=== PATIENT | female | born 1980 | race American Indian/Alaskan Native ===

== ENCOUNTER 2017-04-07 09:16 | Emergency (ER) | payer OTHER ==
[2017-04-07] MEDS ORDERED: DUONEB *Not for PRN Use IH ONE (11:11)
--- NOTE | 2017-04-07 12:24 | Emergency Department Report ---
ED Chest Pain HPI - General Chief Complaint: Dyspnea/Respdistress Stated Complaint: SOB Time Seen by Provider: 04/07/17 11:00 Source: patient Mode of arrival: Ambulatory Limitations: No Limitations - History of Present Illness Initial Comments: This is a 36-year-old female nontoxic, well nourished in appearance, no acute signs of distress presents to the ED with c/o of chest pain, shortness of breathe, and rash in between her breast. Patient describes chest pain as an "elephant on chest". Patient stated chest pain feels like its closing up. Patient denies any radiation of chest pain. Patient denies any back pain. Patient has history of asthma but this is not similar symptoms. Patient denies any fever, chills, nausea, vomiting, headache, stiff neck, numbness or tingling. States she was diagnosed with heart failure one year ago but has not been compliant with medication and hasn't been taking medication for the past month. Patient denies any drug allergies. PMH includes heart failure and asthma. MD Complaint: chest pain -: days(s) (1) Onset: during rest, during exertion Pain Location: substernal Pain Radiation: none Severity: mild Severity scale (0 -10): 8 Quality: aching, heaviness, pressure, squeezing Consistency: constant Improves With: nothing Worsens With: nothing re: dyspnea. denies: nausea, vomting, diaphoresis, sense of impending doom Other Symptoms: denies: cough, fever, syncope, rash, acid taste in mouth, leg swelling, palpitations, burping Treatments Prior to Arrival: none Aspirin use within the Past 7 Days: (0) No - Related Data Previous Rx's Medication Instructions Recorded Last Taken Type Albuterol Sulfate [Ventolin HFA] 2 puff IH Q4H PRN #1 hfa.aer.ad 08/21/13 Unknown Rx ALBUTEROL Inhaler [ProAir HFA 2 puff IH QID PRN #1 inhalation 12/30/13 Unknown Rx Inhaler] predniSONE [Deltasone] 50 mg PO QDAY #4 tab 12/30/13 Unknown Rx Prednisone 40 mg PO QDAY #4 day 03/23/14 Unknown Rx Sulfamethoxazole/Trimethoprim 1 each PO BID #20 tablet 03/23/14 Unknown Rx [Bactrim Ds] Triamcinolone 0.1% [Kenalog 0.1% 1 applic TP TID #1 tube 03/23/14 Unknown Rx CREAM] Allergies Allergy/AdvReac Type Severity Reaction Status Date / Time No Known Allergies Allergy Unverified 11/14/12 10:52 Heart Score - HEART Score History: Moderately suspicious EKG: Non-specific Age: < 45 Risk factors: 1-2 risk factors Troponin: < normal limit HEART Score: 3 ED Review of Systems ROS: Stated complaint: SOB Other details as noted in HPI Constitutional: denies: chills, fever Eyes: denies: eye pain, eye discharge, vision change ENT: denies: ear pain, throat pain Respiratory: denies: cough, shortness of breath, wheezing Cardiovascular: chest pain. denies: palpitations Endocrine: no symptoms reported Gastrointestinal: denies: abdominal pain, nausea, diarrhea Genitourinary: denies: urgency, dysuria, discharge Musculoskeletal: denies: back pain, joint swelling, arthralgia Skin: denies: rash, lesions Neurological: denies: headache, weakness, paresthesias Psychiatric: denies: anxiety, depression Hematological/Lymphatic: denies: easy bleeding, easy bruising ED Past Medical Hx - Past Medical History Hx Hypertension: No Hx Congestive Heart Failure: No Hx Diabetes: No Hx Deep Vein Thrombosis: No Hx Renal Disease: No Hx Sickle Cell Disease: No Hx Seizures: No Hx Asthma: Yes Hx COPD: No Hx HIV: No - Social History Smoking Status: Never Smoker Substance Use Type: None - Medications Home Medications: Home Medications Medication Instructions Recorded Confirmed Last Taken Type Albuterol Sulfate [Ventolin HFA] 2 puff IH Q4H PRN #1 hfa.aer.ad 08/21/13 Unknown Rx ALBUTEROL Inhaler [ProAir HFA 2 puff IH QID PRN #1 inhalation 12/30/13 Unknown Rx Inhaler] predniSONE [Deltasone] 50 mg PO QDAY #4 tab 12/30/13 Unknown Rx Prednisone 40 mg PO QDAY #4 day 03/23/14 Unknown Rx Sulfamethoxazole/Trimethoprim 1 each PO BID #20 tablet 03/23/14 Unknown Rx [Bactrim Ds] Triamcinolone 0.1% [Kenalog 0.1% 1 applic TP TID #1 tube 03/23/14 Unknown Rx CREAM] ED Physical Exam - General Limitations: No Limitations General appearance: alert, in no apparent distress - Head Head exam: Present: atraumatic, normocephalic - Eye Eye exam: Present: normal appearance, PERRL, EOMI Pupils: Present: normal accommodation - ENT ENT exam: Present: normal exam, normal orophraynx, mucous membranes moist, TM's normal bilaterally, normal external ear exam - Neck Neck exam: Present: normal inspection, full ROM. Absent: tenderness, meningismus, lymphadenopathy, thyromegaly - Respiratory Respiratory exam: Present: normal lung sounds bilaterally, wheezes (bialteral upper and lower lobes). Absent: respiratory distress, rales, rhonchi, stridor, chest wall tenderness, accessory muscle use, decreased breath sounds, prolonged expiratory - Cardiovascular Cardiovascular Exam: Present: regular rate, normal rhythm, normal heart sounds. Absent: systolic murmur, diastolic murmur, rubs, gallop - GI/Abdominal GI/Abdominal exam: Present: soft, normal bowel sounds. Absent: distended, tenderness, guarding, rebound, rigid, diminished bowel sounds - Rectal Rectal exam: Present: deferred - Extremities Exam Extremities exam: Present: normal inspection, full ROM, normal capillary refill. Absent: tenderness, pedal edema, joint swelling, calf tenderness - Back Exam Back exam: Present: normal inspection, full ROM. Absent: tenderness, CVA tenderness (R), CVA tenderness (L), muscle spasm, paraspinal tenderness, vertebral tenderness, rash noted - Neurological Exam Neurological exam: Present: alert, oriented X3, CN II-XII intact, normal gait, reflexes normal - Psychiatric Psychiatric exam: Present: normal affect, normal mood - Skin Skin exam: Present: warm, dry, intact, normal color, other (circular erythema with crusting to bilateral middle of breast regin. No abscess or swelling noted. No pus or drianage noted. ) ED Course Vital Signs 04/07/17 04/07/17 04/07/17 09:43 11:06 11:19 Temperature 98.9 F 98.3 F Pulse Rate 96 H 92 H Pulse Rate [ Bilateral] Respiratory 18 Rate Respiratory Rate [Bilateral ] Blood Pressure 139/89 Blood Pressure 112/63 [Right] O2 Sat by Pulse 95 98 Oximetry 04/07/17 11:25 Temperature Pulse Rate Pulse Rate [ 96 H Bilateral] Respiratory Rate Respiratory 16 Rate [Bilateral ] Blood Pressure Blood Pressure [Right] O2 Sat by Pulse Oximetry - Reevaluation(s) Reevaluation #1: 04/07/17 12:31 Patient is speaking in full sentences with no signs of distress noted. - Consultations Consultation #1: 04/07/17 12:32 Dr. Bryant has been consulted about patient history, physical exam, and labs/ xray findings and agrees for admission. RICARDO score - Ricardo Score Age > 65: (0) No Aspirin use within the Past 7 Days: (0) No 3 or more CAD Risk Factors: (0) No 2 or more Angina events in past 24 hrs: (1) Yes Known CAD with more than 50% Stenosis: (0) No Elevated Cardiac Markers: (0) No ST Deviation Greater than 0.5mm: (0) No RICARDO Score: 1 ED Medical Decision Making - Lab Data Result diagrams: 04/07/17 12:15 - Medical Decision Making This is a 36-year-old female that presents with chest pain, shortness of breath , and tinea corporis. Patient is stable and was examined by me. Dr. Campo was consulted and agrees for admission. EKG obtained with no acute ST abnormalities. CXR obtained. Patient received DuoNeb and 125 mg of Solu-Medrol which preceded his symptoms of short of breath is still there. Labs obtained. D-dimer pending. Patient was put on cardiac montior and 2L of nasal cannula. Patient also received 325mg of aspirin. Patient will be admitted by Dr. Dixon which was consulted and accepts patient for further workup. At time of admission , the patient does not seem toxic or ill in appearance. No acute signs of distress noted. Patient agrees to admission treatment plan of care. No further questions noted by the patient. Critical care attestation.: If time is entered above; I have spent that time in minutes in the direct care of this critically ill patient, excluding procedure time. ED Disposition Clinical Impression: Angina at rest, Tinea corporis Disposition: OP ADMIT IP TO THIS HOSP Is pt being admited?: Yes Condition: Stable Instructions: Angina (ED) Referrals: PRIMARY CARE, [Primary Care Provider] - 3-5 Days
[2017-04-07 12:26] LABS: Basophils % (Auto) 0.6 % (0.0-1.8); Eosinophils # (Auto) 0.4 K/mm3 (0.0-0.4); Hemoglobin 12.7 gm/dl (10.1-14.3); Lymphocytes # (Auto) 3.2 K/mm3 (1.2-5.4); Lymphocytes % (Auto) 43.4 % (13.4-35.0); Mean Corpuscular HGB Conc 32 % (30-34); Mean Corpuscular Hemoglobin 28 pg (28-32); Mean Corpuscular Volume 85 fl (79-97); Monocytes # (Auto) 0.5 K/mm3 (0.0-0.8); Monocytes % (Auto) 6.7 % (0.0-7.3); Platelet Count 292 K/mm3 (140-440); Red Blood Count 4.59 M/mm3 (3.65-5.03); Red Cell Distribution Width 14.3 % (13.2-15.2)
[2017-04-07] MEDS ORDERED: ASPIRIN PO ONE (12:26)
[2017-04-07 12:36] LABS: INR 0.93 (0.87-1.13); Partial Thromboplastin Time 29.7 Sec. (24.2-36.6)
[2017-04-07 12:44] LABS: Creatine Kinase MB 4.6 ng/mL (0.0-4.0)
[2017-04-07 12:45] LABS: BUN/Creatinine Ratio 13; Blood Urea Nitrogen 10 mg/dL (7-17); Calcium 8.4 mg/dL (8.4-10.2); Hemolysis Index 1
[2017-04-07 12:47] LABS: Alanine Aminotransferase 12 units/L (7-56); Albumin 3.9 g/dL (3.9-5)
[2017-04-07 12:49] LABS: Bilirubin,Direct < 0.2 mg/dL (0-0.2)
[2017-04-07] MEDS ORDERED: ASPIRIN ONE (14:39)
--- NOTE | 2017-04-07 15:54 | XRay Report ---
FINAL REPORT EXAM: XR CHEST ROUTINE 2V HISTORY: asthma TECHNIQUE: 2 view examination of the chest PRIORS: None FINDINGS: Slight thoracic spine curvature with upper left apex. There is no consolidated pneumonia, pleural effusion, or pneumothorax. Cardiac silhouette size is normal without vascular congestion. The regional skeleton is without acute pathology. Large lung volumes bilaterally suggest hyperinflation which may correspond with history of asthma. IMPRESSION: Bilateral large lung volumes may correspond with history of asthma. No focal pulmonary consolidation
[2017-04-07 16:02] VITALS: BP 147/90
[2017-04-07 16:02] LABS: Bacteria,Urine 1+ /HPF (Negative); Bilirubin,Urine NEG (Negative); Blood,Urine NEG (Negative); Color,Urine Yellow (Yellow); Mucus,Urine FEW /HPF; Protein,Urine <15 mg/dL mg/dL (Negative); Urobilinogen,Urine < 2.0 mg/dL (<2.0)
== END 2017-04-07 17:11 | disposition admitted as inpatient to this hospital (09) ==
LOC: ED 09:16
DX: I20.9 Angina pectoris, unspecified (principal); B35.4 Tinea corporis; J45.909 Unspecified asthma, uncomplicated
CPT/HCPCS: 36415; 71046; 80048; 80074; 81001; 82550; 82553; 83735; 83880; 84484; 84703; 85025; 85379; 85610; 85730; 93005; 93010; 94640; 96372; 99284; J2930

== ENCOUNTER 2020-01-16 16:56 | Emergency (ER) | payer SELFPAY ==
[2020-01-16 17:11] VITALS: BP 149/94
--- NOTE | 2020-01-16 17:34 | Emergency Department Report ---
Blank Doc - Documentation Documentation: Obese -[place] female with family history of CHF and hypertension pres ents emergency department complaining of shortness of breath and lower extremity swelling This initial assessment/diagnostic orders/clinical plan/treatment(s) is/are subject to change based on patients health status, clinical progression and re- assessment by fellow clinical providers in the ED. Further treatment and workup at subsequent clinical providers discretion. Patient/guardian urged not to elope from the ED as their condition may be serious if not clinically assessed and managed. Initial orders include: CHF work-up
--- NOTE | 2020-01-16 17:55 | XRay Report ---
XR chest routine 2V INDICATION / CLINICAL INFORMATION: Dyspnea COMPARISON: None available. FINDINGS: SUPPORT DEVICES: None. HEART / MEDIASTINUM: No significant abnormality. LUNGS / PLEURA: Lungs are clear. Costophrenic sulci are sharp. No pneumothorax. ADDITIONAL FINDINGS: No significant additional findings. IMPRESSION: 1. No acute findings. Signer Name: Ramana Mead MD Signed: 01/16/2020 5:50 PM Workstation Name: [id number][id number]
[2020-01-16 18:24] LABS: Basophils % (Auto) 0.6 % (0.0-1.8); Eosinophils # (Auto) 0.5 K/mm3 (0.0-0.4); Eosinophils % (Auto) 7.2 % (0.0-4.3); Hematocrit 38.2 % (30.3-42.9); Hemoglobin 12.5 gm/dl (10.1-14.3); Lymphocytes # (Auto) 3.4 K/mm3 (1.2-5.4); Lymphocytes % (Auto) 46.8 % (13.4-35.0); Mean Corpuscular HGB Conc 33 % (30-34); Mean Corpuscular Volume 85 fl (79-97); Monocytes # (Auto) 0.5 K/mm3 (0.0-0.8); Monocytes % (Auto) 7.5 % (0.0-7.3); Red Cell Distribution Width 14.4 % (13.2-15.2)
[2020-01-16 18:31] LABS: Platelet Count 288 K/mm3 (140-440)
[2020-01-16 18:43] LABS: Alanine Aminotransferase 13 units/L (7-56); Albumin 3.4 g/dL (3.9-5); BUN/Creatinine Ratio 11; Blood Urea Nitrogen 9 mg/dL (7-17); Calcium 9.3 mg/dL (8.4-10.2); Hemolysis Index 12
== END 2020-01-17 | disposition left against medical advice (07) ==
LOC: ED 16:56
DX: R07.89 Other chest pain (principal); Z53.21 Procedure and treatment not carried out due to patient leaving prior to being seen by health care provider
CPT/HCPCS: 36415; 71046; 80053; 83880; 84484; 85025; 93005